=== PATIENT | female | born 1965 | race Two or more races ===

== ENCOUNTER 2016-12-23 21:53 | Emergency (ER) | payer BC ==
[~2016-12-23] VITALS: Ht 167.6 cm; Wt 73.9 kg
[2016-12-23 22:09] VITALS: BP 128/87
[2016-12-23] MEDS ORDERED: LEVO500T15 PO (22:19)
== END 2016-12-23 22:26 | disposition home or self-care (01) ==
LOC: ER 21:55 → EDSEX 21:55 → ER 22:26
DX: J06.9 Acute upper respiratory infection, unspecified (principal)
CPT/HCPCS: 99283; A4606; Z7610